=== PATIENT | female | born 1990 | race Caucasian/White ===

== ENCOUNTER 2019-05-23 08:23 | Emergency (ER) | payer OTHER ==
[~2019-05-23] VITALS: Ht 167.6 cm; Wt 65.8 kg
[~2019-05-23 08:23] MED LIST: ALEVE220 M1 PO; NORCO 5-325 TA1 EACH PO
[2019-05-23 16:34] VITALS: BP 124/63
== END 2019-05-23 16:37 | disposition home or self-care (01) ==
LOC: ER 08:23
DX: S00.83XA Contusion of other part of head, initial encounter (principal); M25.512 Pain in left shoulder; F41.9 Anxiety disorder, unspecified; F32.9 Major depressive disorder, single episode, unspecified; F17.210 Nicotine dependence, cigarettes, uncomplicated; Y04.0XXA Assault by unarmed brawl or fight, initial encounter; Y92.89 Other specified places as the place of occurrence of the external cause; Y93.89 Activity, other specified; Y99.8 Other external cause status

== ENCOUNTER 2019-05-24 04:20 | Emergency (ER) | payer OTHER ==
[~2019-05-24] VITALS: Ht 167.6 cm; Wt 63.5 kg
[2019-05-24 04:20] VITALS: BP 113/81
== END 2019-05-24 05:04 | disposition home or self-care (01) ==
LOC: ER 04:20
DX: R51 Headache (principal); F17.210 Nicotine dependence, cigarettes, uncomplicated